=== PATIENT | female | born 2000 | race Caucasian/White ===

== ENCOUNTER 2023-10-08 00:03 | Emergency (ER) | payer BC ==
[~2023-10-08] VITALS: Ht 167.6 cm; Wt 97.5 kg
[2023-10-08 00:17] VITALS: TEMP 98.3
[2023-10-08] MEDS ORDERED: IBUPROFEN 400 MG TABLET ONE (00:27)
[2023-10-08] MEDS: IBUPROFEN 400 MG TABLET PO ONE (00:28)
[2023-10-08 01:49] VITALS: BP 140/95; O2SAT 98
== END 2023-10-08 01:49 | disposition home or self-care (01) ==
LOC: ER 00:06
DX: J02.8 Acute pharyngitis due to other specified organisms (principal); H44.001 Unspecified purulent endophthalmitis, right eye; Z88.0 Allergy status to penicillin; Z20.822 Contact with and (suspected) exposure to COVID-19
CPT/HCPCS: 86403-TC; 87070-TC